=== PATIENT | female | born 1980 | race Asian ===

== ENCOUNTER 2021-09-23 17:54 | Emergency (ER) | payer BC, MEDICAID ==
[~2021-09-23] VITALS: Ht 172.7 cm; Wt 64.0 kg
[2021-09-23 18:01] VITALS: BP 139/94
[2021-09-23] MEDS ORDERED: TETANUS, DIPHTHERIA, PERTUSSIS VAC/PF 0.5ML (>10YR OLD) IM ONE (18:30)
[2021-09-23] MEDS ORDERED: ACETAMINOPHEN 325MG TABLET PO ONE (18:30)
[2021-09-23] MEDS ORDERED: LIDOCAINE HCL/EPINEPHRINE 1%-EPI 1:100,000 50 ML VIAL INFIL ONE (20:45)
[2021-09-23] MEDS ORDERED: LIDOCAINE HCL/EPINEPHRINE 1%-EPI 1:100,000 20 ML VIAL INFIL NR (21:00)
== END 2021-09-24 | disposition home or self-care (01) ==
LOC: ER 17:54
DX: S01.81XA Laceration without foreign body of other part of head, initial encounter (principal); Y08.89XA Assault by other specified means, initial encounter; Y93.89 Activity, other specified; Y92.89 Other specified places as the place of occurrence of the external cause; Y99.8 Other external cause status
CPT/HCPCS: 12011; 70450; 70486; 81025; 90471; 90715; 99284; J3490